=== PATIENT | female | born 1990 | race Caucasian/White ===

== ENCOUNTER 2024-08-27 13:18 | Emergency (ER) | payer OTHER ==
[~2024-08-27] VITALS: Ht 162.5 cm; Wt 99.1 kg
[~2024-08-27 13:18] MED LIST: FLUCONAZOLE100 MG PO; SEPTDS PO; VIBRAMYCIN100 MG PO
[2024-08-27] MEDS ORDERED: TAMIFLU 75MG CA75 MG PO (15:22)
== END 2024-08-27 15:26 | disposition home or self-care (01) ==
LOC: ED 13:18
DX: J10.1 Influenza due to other identified influenza virus with other respiratory manifestations (principal); Z20.822 Contact with and (suspected) exposure to COVID-19; Z88.0 Allergy status to penicillin; Z98.890 Other specified postprocedural states

== ENCOUNTER 2024-10-22 16:39 | Emergency (ER) | payer OTHER ==
[~2024-10-22] VITALS: Ht 165.1 cm; Wt 100.7 kg
[~2024-10-22 16:39] MED LIST changes: +TAMIFLU 75MG CA75 MG PO
[2024-10-22] MEDS ORDERED: SODIUM CHLORIDE 0.9% 1,000 ML IV ONE (17:05)
[2024-10-22] MEDS ORDERED: Ketorolac Tromethamine 30 MG/ML VIAL IV ONE (17:05)
[2024-10-22] MEDS ORDERED: ACETAMINOPHEN 325 MG TAB PO ONE (17:05)
[2024-10-22 17:27] LABS: BASO % 0.2 % (0.0-1.0); HEMATOCRIT 40.6 % (37.0-47.0); MEAN CELL VOLUME 85.8 fl (81.0-99.0); MEAN CORPUSCULAR HGB 29.2 pg (27.0-31.0); MEAN PLATELET VOLUME 11.2 fl (9.6-12.3); MONO # 0.9 10*3/uL (0.1-1.0); MONO % 8.2 % (3.0-9.0); NEUT # 9.6 10*3/uL (2.3-7.9); NEUT % 83.8 % (47.0-73.0); PLATELET COUNT AUTOMATED 192 10*3/uL (130-400); RED BLOOD COUNT 4.73 10*6/uL (4.10-5.10); RED CELL DISTRI WIDTH 14.5 % (0-14.5); WHITE BLOOD COUNT 11.5 10*3/uL (4.8-10.8)
[2024-10-22 17:46] LABS: BUN 7 mg/dl (9-23); CHLORIDE 104 mmol/L (98-107); POTASSIUM 3.1 mmol/L (3.4-5.1)
[2024-10-22] MEDS ORDERED: Oseltamivir Phosphate 75 MG CAP PO ONE (18:50)
[2024-10-22] MEDS ORDERED: POTASSIUM CHLORIDE 20 MEQ TAB PO ONE (18:50)
[2024-10-23] MEDS ORDERED: MEDROL DOSEPAK4 MG PO (18:07)
[2024-10-23] MEDS ORDERED: Ondansetron4 MG PO (18:07)
[2024-10-23] MEDS ORDERED: CLARITIN10 MG PO (18:07)
== END 2024-10-22 18:56 | disposition home or self-care (01) ==
LOC: ED 16:39
PROVIDERS: Nurse Practitioner Family
DX: J10.1 Influenza due to other identified influenza virus with other respiratory manifestations (principal); Z20.822 Contact with and (suspected) exposure to COVID-19; E87.6 Hypokalemia; Z88.0 Allergy status to penicillin; Z98.890 Other specified postprocedural states

== ENCOUNTER 2024-10-23 17:06 | Emergency (ER) | payer OTHER ==
[~2024-10-23] VITALS: Wt 90.7 kg
[2024-10-23] MEDS ORDERED: MEDROL DOSEPAK4 MG PO (18:07)
[2024-10-23] MEDS ORDERED: Ondansetron4 MG PO (18:07)
[2024-10-23] MEDS ORDERED: CLARITIN10 MG PO (18:07)
[2024-10-23] MEDS ORDERED: methylPREDNISolone sod succ 125 MG VIAL IM ONE (18:10)
[2024-10-23] MEDS ORDERED: IBUPROFEN 800 MG TAB PO ONE (18:10)
== END 2024-10-23 18:32 | disposition home or self-care (01) ==
LOC: ED 17:06
DX: J10.1 Influenza due to other identified influenza virus with other respiratory manifestations (principal); R11.2 Nausea with vomiting, unspecified; H92.01 Otalgia, right ear; Z88.0 Allergy status to penicillin

== ENCOUNTER 2025-01-20 10:15 | Emergency (ER) | payer OTHER ==
[~2025-01-20] VITALS: Ht 165.1 cm; Wt 97.1 kg
[~2025-01-20 10:15] MED LIST changes: +CLARITIN10 MG PO; +MEDROL DOSEPAK4 MG PO; +Ondansetron4 MG PO
[2025-01-20] MEDS ORDERED: IBUPROFEN600 MG PO (11:20)
[2025-01-20] MEDS ORDERED: ZITHROMAX250 MG PO (11:20)
== END 2025-01-20 11:25 | disposition home or self-care (01) ==
LOC: ED 10:15
DX: J02.9 Acute pharyngitis, unspecified (principal); R59.0 Localized enlarged lymph nodes; Z88.0 Allergy status to penicillin